=== PATIENT | female | born 1985 | race Caucasian/White ===

== ENCOUNTER 2021-12-02 22:19 | Emergency (ER) | payer OTHER ==
[~2021-12-02 22:19] MED LIST: ATIVAN0.5 MG PO; CYCLOBENZAPRINE10 MG PO; IBUPROFEN800 MG PO; MEDROL 4MG DOSEP4 MG PO; NAPROXEN500 MG PO; NORCO 5-325 TA1 EACH PO
== END 2021-12-03 01:35 | disposition home or self-care (01) ==
LOC: FER 22:19
DX: M25.532 Pain in left wrist (principal); Z88.0 Allergy status to penicillin; W19.XXXA Unspecified fall, initial encounter; Y92.009 Unspecified place in unspecified non-institutional (private) residence as the place of occurrence of the external cause
CPT/HCPCS: 73110